=== PATIENT | female | born 1995 | race Caucasian/White ===

== ENCOUNTER 2022-10-22 16:38 | Emergency (ER) | payer BC, SELFPAY ==
--- NOTE | ~2022-10-22 | XR_ITS ---
EXAMINATION: XR elbow RT min 3V DATE: 10/22/2022 17:16 INDICATION: Posterior right elbow pain after falling backwards while skateboarding TECHNIQUE: Anteroposterior, two oblique and lateral views of the eighth elbow were obtained. COMPARISON: None. FINDINGS: Alignment is normal. Suggestion of a possible minimally impacted fracture at the right radial head ne ck junction where there is equivocal cortical angulation. No other lesions suspicious for fracture id entified. Joint spaces are normal with small right elbow joint effusion evident by displacement of th e anterior but not the posterior fat pad. Soft tissues are otherwise unremarkable. IMPRESSION: 1. Small right elbow joint effusion with possible minimally impacted fracture at the right radial hea d neck junction. Reviewed, dictated and finalized at location A. LINE INSPECTOR IMPRESSION: 1. Small right elbow joint effusion with possible minimally impacted fracture a t the right radial head neck junction.
[2022-10-22 16:49] VITALS: BP 126/65; PULSE 116; RESP 20; TEMP 36.9; O2SAT 98
--- NOTE | 2022-10-22 18:37 | ED.UPPEXIN ---
HPI - Extremity Injury (Upper) General Chief Complaint: Extremity Injury, Upper Stated Complaint: Right elbow injury Time Seen by Provider: 10/22/22 18:00 Source: patient, RN notes reviewed and old records reviewed Mode of arrival: ambulatory Limitations: no limitations History of Present Illness HPI narrative: 27 year old female accompanied by and daughter presents to express care with injury to her right elbow region which occurred today when she fell on out stretched hand while roller skating today.Patient has pain to the right elbow region and is unable to pronate or supinate her right arm. patient has some bruising to the palm of right hand but no acute pain or any limitation of mobility. MD complaint: injury to: right and elbow Onset (ago): hour(s) (30 minutes to 1 hour prior to arrival) Severity scale (1-10): 4 Treatments prior to arrival: other (none) Related Data Home Medications Medication Instructions Recorded Confirmed multivitamin (Daily Multi-Vitamin 1 tablet PO DAILY 10/22/22 10/22/22 tablet) Allergies Allergy/AdvReac Type Severity Reaction Status Date / Time No Known Allergies Allergy Verified 10/22/22 16:51 Review of Systems Review of Systems: CONSTITUTIONAL: Denies fever, chills, or sweats. CARDIOVASCULAR: Denies chest pain, palpitations, or edema. RESPIRATORY: Denies cough or dyspnea. SKIN: Denies rash or itching. Denies lacerations or abrasions MUSCULOSKELETAL: Reports injury to her right elbow region from fall while roller skating today NEUROLOGIC: Denies numbness, or weakness. All systems reviewed & are unremarkable except as noted in HPI and below PMFSH Surgical History Surgical History (Updated 10/22/22 @ 21:30 by Ilana Landaverde NP) History of cholecystectomy S/P foot surgery, left Comments At time of signature, agree with nursing past medical, surgical, social and family history. There is no relevant family history pertinent to the presenting complaint Exam Narrative: GENERAL: Well-appearing, well-nourished, and in no acute distress. HEAD: Normocephalic, atraumatic. EYES: PERRLA and EOMI. ENT: Nares clear, no rhinorrhea or epistaxis. Mucous membranes moist. TMs normal with good light wrist pink with no lesions NECK: Supple. No lymphadenopathy CHEST: Clear to auscultation. No respiratory distress. SaO2 98% on room air HEART: Regular rate and rhythm. No murmur heard. Normal peripheral pulses. ABDOMEN: Soft, nontender, nondistended, normal active bowel sounds. EXTREMITIES: Normal range of motion no edema exception noted to right elbow region with pain and some swelling noted with patient unable to supinate or pronate right forearm acute discomfort strong pulses to right arm, nail beds dilshad briskly. SKIN: Warm, dry, no rash NEURO: No focal deficits. Alert and oriented x3. Course Course Level of Care: Express Care Visit Vital Signs Vital signs: Vital Signs Temperature 36.9 C 10/22/22 16:49 Pulse Rate 116 H 10/22/22 16:49 Respiratory Rate 20 10/22/22 16:49 Blood Pressure 126/65 10/22/22 16:49 Pulse Oximetry 98 10/22/22 16:49 Oxygen Delivery Room Air 10/22/22 16:49 Temperature 36.9 C 10/22/22 16:49 Pulse Rate 116 H 10/22/22 16:49 Respiratory Rate 20 10/22/22 16:49 Blood Pressure 126/65 10/22/22 16:49 Pulse Oximetry 98 10/22/22 16:49 Oxygen Delivery Room Air 10/22/22 16:49 Procedures Orthopedic Splinting/Casting right radial head: Splinting/Casting Date: 10/22/22 Splinting/Casting Time: 18:18 Side: right Upper Extremity Injury Location: elbow Upper Extremity Immobilizer: posterior splint Splint: customized in ED OCL: long arm Pre-Procedure Neuro Vascular Exam: normal Post-Procedure Neuro Vascular Exam: normal Other Orthopedic Equipment: other (sling) Additional Comments: tolerated splinting well MDM - Extremity Injury (Upper) MDM Narrative
== END 2022-10-22 18:49 | disposition home or self-care (01) ==
PROVIDERS: Emergency Provider Registered Nurse; PCP Emergency Medicine
DX: S52.121A Displaced fracture of head of right radius, initial encounter for closed fracture (principal); W19.XXXA Unspecified fall, initial encounter; Y93.51 Activity, roller skating (inline) and skateboarding; M25.421 Effusion, right elbow
CPT/HCPCS: 29105; 73080; 99214; A4565; G0463

== ENCOUNTER 2023-07-04 18:54 | Emergency (ER) | payer SELFPAY ==
--- NOTE | 2023-07-04 18:55 | ED.ABDPAIN ---
HPI - Abdominal Pain General Chief Complaint: Abdominal Pain Stated Complaint: Abdominal Pain Time Seen by Provider: 07/04/23 19:21 Source: patient and RN notes reviewed Mode of arrival: ambulatory Limitations: no limitations History of Present Illness HPI narrative: 28-year-old female presents with concern for epigastric pain for 3 days. She reports symptoms started after she ate chocolate, and worsened last night after she ate lasagna. Reports she has history of similar symptoms that are triggered by certain foods. She reports initially she had diarrhea but she has not had a bowel movement for 2 days. She denies any fever, aches, chills, sweats, vomiting. She has a history of cholecystectomy ERCP. She is . She has been taking Pepcid daily without relief MD elicited complaint: abdominal pain Related Data Home Medications Medication Instructions Recorded Confirmed multivitamin (Daily Multi-Vitamin 1 tablet PO DAILY 10/22/22 07/04/23 tablet) Allergies Allergy/AdvReac Type Severity Reaction Status Date / Time No Known Allergies Allergy Verified 07/04/23 19:10 Review of Systems Review of Systems: CONSTITUTIONAL: Denies malaise, chills, sweats, or fever. ENT: Denies rhinorrhea, congestion, sinus pain, otalgia or sore throat. CARDIOVASCULAR: Denies chest pain, palpitations, or edema. RESPIRATORY: Denies cough or dyspnea. GASTROINTESTINAL: Reports epigastric pain. Denies nausea, vomiting, diarrhea, bloody, or mucous stools. GENITOURINARY: Denies dysuria or hematuria. MUSCULOSKELETAL: Denies myalgia. NEUROLOGIC: Denies headache. All systems reviewed & are unremarkable except as noted in HPI and below PMFSH Surgical History Surgical History (Updated 10/22/22 @ 21:30 by Ilana Landaverde NP) History of cholecystectomy S/P foot surgery, left Comments At time of signature, agree with nursing past medical, surgical, social and family history. There is no relevant family history pertinent to the presenting complaint Exam Narrative: GENERAL: Well-appearing, well-nourished, and in no acute distress. HEAD: Normocephalic, atraumatic. EYES: PERRLA, conjunctivae clear, and EOMI. ENT: Nares clear, turbinates pink, no rhinorrhea or epistaxis. Mucous membranes moist. Oropharynx without edema, erythema, or lesions. Tonsils not enlarged and without exudate. NECK: Supple. No lymphadenopathy CHEST: Speaks in full sentences. No respiratory distress. HEART: Regular rate and rhythm. ABDOMEN: Soft, flat, nondistended. Mild epigastric tenderness. No guarding, rebound tenderness, or rigidity. No pulsatile masses. Bowel sounds present in all four quadrants. No organomegaly. SKIN: Warm, dry, no rash. NEURO: Alert and oriented x3. PSYCH: Normal mood and affect Course Course Emergency Course: Patient is aware of diagnosis, understands and agrees to treatment plan. Anticipatory guidance given. Patient agrees to follow-up as directed and is aware of reasons to seek care at the emergency department. Portions of this record may have been created with voice recognition software Level of Care: Express Care Visit Reevaluation(s) Reevaluation #1: Patient reports improvement in pain after GI cocktail, she reports pain is not completely resolved but is greatly. Date: 07/04/23 Time: 19:44 Vital Signs Vital signs: Reviewed. MDM - Abdominal Pain MDM Narrative Medical decision making narrative: No evidence of pancreatitis, AAA, cholecystitis, choledocholithiasis, cholangitis, mesenteric ischemia, small bowel obstruction, diverticulitis, colitis, appendicitis, or pelvic etiology such as ovarian torsion, TOA, or ectopic . Patient has no history of peptic ulcer, H. pylori, chronic aspirin NSAID or corticosteroid use, chronic alcohol use, no history of inflammatory bowel disease, no history of active abdominal infection or malignancy. Patient has no history of hernia or intra-abdominal surgeries, pa
[2023-07-04 19:00] VITALS: BP 119/68; PULSE 80; RESP 16; TEMP 36.9; O2SAT 100
[2023-07-04] MEDS: MAG HYDROX/AL HYDROX/SIMETH 30 ML UDC 15 ML PO (19:29)
[2023-07-04] MEDS: LIDOCAINE HCL 2% VISC SOLN 15 ML UDC PO (19:29)
== END 2023-07-04 19:50 | disposition home or self-care (01) ==
PROVIDERS: Emergency Provider Nurse Practitioner
DX: R10.13 Epigastric pain (principal); Z90.49 Acquired absence of other specified parts of digestive tract
CPT/HCPCS: 99213; A9270; G0463